=== PATIENT | male | born 1990 | race Caucasian/White ===

== ENCOUNTER 2018-08-25 15:26 | Emergency (ER) | payer OTHER ==
--- NOTE | 2018-08-25 16:00 | ED ---
Syncope/Near Syncope - HPI Summary HPI Summary: 28 year old F presenting to [facility] accompanied by female friend with a chief complaint of syncope two hours ago, since resolved. The patient rates the pain 1 /10 in severity. Symptoms aggravated by nothing. Symptoms alleviated by nothing. Patient reports nausea, dizziness, loss of consciousness. Patient has small laceration on back of head. Patient denies headache, blurry vision, neck pain, palpitations, chest pain. Patient was sitting and watching a video earlier in which there was blood and trauma. Patient felt faint, stood up to go to the hallway outside the classroom in which he was sitting, and passed out, hitting his head on corner of wall. Patient is unsure when his last tetanus shot was. - History Of Current Complaint Chief Complaint: EDSyncope Time Seen by Provider: 08/25/18 15:51 Hx Obtained From: Patient Onset/Duration: Sudden Onset, Resolved Context: Loss Of Consciousness Activity At Onset: At Rest Associated Head Trauma: Yes Aggravating Factor(s): Nothing Alleviating Factor(s): Nothing Associated Signs And Symptoms: Negative - headache, blurry vision, neck pain, palpitations, chest pain, Other - nausea, dizziness, loss of consciousness, brittney laceration on back of head - Allergies/Home Medications Allergies/Adverse Reactions: Allergies Allergy/AdvReac Type Severity Reaction Status Date / Time Sulfa (Sulfonamide Allergy Nausea Verified 08/25/18 15:32 Antibiotics) Home Medications: Home Medications Cetirizine HCl [Zyrtec] 10 mg PO DAILY 08/25/18 [History Confirmed 08/25/18] Docusate Sodium [Colace] 100 mg PO DAILY 08/25/18 [History Confirmed 08/25/18] PMH/Surg Hx/FS Hx/Imm Hx Previously Healthy: No Respiratory History: Denies: Hx Asthma Sensory History: Reports: Hx Contacts or Glasses Opthamlomology History: Reports: Hx Contacts or Glasses - Surgical History Surgery Procedure, Year, and Place: None Infectious Disease History: Yes Infectious Disease History: Denies: Traveled Outside the [place] in Last 30 Days - Family History Known Family History: Positive: Cardiac Disease, Diabetes, Other - [place] - Social History Alcohol Use: None Hx Substance Use: No Substance Use Type: Reports: None Hx Tobacco Use: No Smoking Status (MU): Never Smoked Tobacco Review of Systems Negative: Blurred Vision Negative: Palpitations, Chest Pain Positive: Nausea Musculoskeletal: Negative - neck pain Positive: Other - small laceration on back of head Neurological: Other - LOC, dizziness Positive: Syncope. Negative: Headache All Other Systems Reviewed And Are Negative: Yes Physical Exam - Summary Physical Exam Summary: VITAL SIGNS: Reviewed. GENERAL: Patient is a well-developed and nourished male who is lying comfortable in the stretcher. Patient is not in any acute respiratory distress. HEAD AND FACE: Small abrasion in the left side of the temporal area EYES: PERRLA, EOMI x 2, No injected conjunctiva, no nystagmus. EARS: Hearing grossly intact. Ear canals and tympanic membranes are within normal limits. MOUTH: Oropharynx within normal limits. NECK: Supple, trachea is midline, no adenopathy, no JVD, no carotid bruit, no c- spine tenderness, neck with full ROM. CHEST: Symmetric, no tenderness at palpation LUNGS: Clear to auscultation bilaterally. No wheezing or crackles. CVS: Regular rate and rhythm, S1 and S2 present, no murmurs or gallops appreciated. ABDOMEN: Soft, non-tender. No signs of distention. No rebound no guarding, and no masses palpated. Bowel sounds are normal. EXTREMITIES: FROM in all major joints, no edema, no cyanosis or clubbing. NEURO: Alert and oriented x 3. No acute neurological deficits. Speech is normal and follows commands. SKIN: Dry and warm GCS: 15 Triage Information Reviewed: Yes Vital Signs On Initial Exam: Initial Vitals Temp Pulse Resp BP Pulse Ox 98.5 F 67 18 124/102 97 08/25/18 15:29 08/25/18 15:29 08/25/18 15:29 08/25/18 15:29 08/25/18 15:29 Vital Signs Reviewed: Yes Diagnostics - Vital Signs Vital Signs Temp Pulse Resp BP Pulse Ox 08/25/18 15:29 98.5 F 67 18 124/102 97 - Laboratory Result Diagrams: 08/25/18 16:35 08/25/18 16:35 Lab Statement: Any lab studies that have been ordered have been reviewed, and results considered in the medical decision making process. - Radiology CXR Radiology Interpretation Completed By: Radiologist Summary of Radiographic Findings: NO EVIDENCE FOR ACTIVE CARDIOPULMONARY DISEASE. ED physician has reviewed the report. - CT Brain CT Interpretation Completed By: Radiologist Summary of CT Findings: NO EVIDENCE FOR ACUTE INTRACRANIAL ABNORMALITY. ED physician has reviewed this report. - EKG 1646 Cardiac Rate: NL - 62 BPM EKG Rhythm: Sinus Rhythm Summary of EKG Findings: No ST elevations, normal axis Re-Evaluation - Re-Evaluation First Eval Re-Evaluation Time: 17:43 Comment: discussed with patient the discharge plan and he is agreeable to discharge Course/Dx Assessment/Plan: This patient is a 20-year-old male who presents to the emergency room with chief complaint of having a syncopal episode. Blood test results without any significant abnormality except for WBCs of 11.1. Troponin is 0.01. EKG is a normal sinus rhythm without any ST elevations. Head CT impression: No evidence for acute intracranial abnormality. Chest x-ray impression: No evidence for active cardiopulmonary disease. In the ED course the patient is drinking fluids. I believe that the patients symptoms are secondary to a vasovagal syncope because he was watching blood each is not used to. Therefore since results are within normal limits, the patient is asymptomatic, he will be discharged home with follow-up with PCP. At this point I discussed all the findings and test results with the patient. He was instructed to return to the emergency room immediately if any of the symptoms return or worsens. He understands and agrees. Neurological exam before discharge : Patient is alert and oriented x 3. No acute neurological deficits. Patient vital signs are stable. Patient is to follow up with PCP in the next 2 3 days. Patient understands and agrees. Plan of care was discussed with the patient and patient understands and agrees with the plan of care. All questions were answered at patient satisfaction. There were no further complaints or concerns. - Diagnoses Provider Diagnoses: Vasovagal syncope, Abrasion of scalp Discharge - Sign-Out/Discharge Documenting (check all that apply): Patient Departure - Discharge Patient Received Moderate/Deep Sedation with Procedure: No - Discharge Plan Condition: Stable Disposition: HOME Patient Education Materials: Laceration (ED), Syncope (ED) Referrals: [facility] [Outside] - 2 Days Additional Instructions: Arrange a primary care provider to have follow-up in 2 days. RETURN TO THE EMERGENCY DEPARTMENT FOR NEW OR WORSENING SYMPTOMS. - Billing Disposition and Condition Condition: STABLE Disposition: Home - Attestation Statements Document Initiated by Scribe: Yes Documenting Scribe: Luz Robles Provider For Whom Hermelindoibe is Documenting (Include Credential): Syd Marcum MD Scribe Attestation: I, Luz Robles, scribed for Syd Marcum MD on 08/25/18 at 2137. Scribe Documentation Reviewed: Yes Provider Attestation: The documentation as recorded by the scribe, Luz Robles accurately reflects the service I personally performed and the decisions made by me, Syd Marcum MD Status of Scribe Document: Viewed
[2018-08-25 16:44] LABS: ABS Basophils 0.1 10^3/ul (0-0.2); ABS Eosinophils 0.1 10^3/ul (0-0.6); ABS Lymphocytes 1.4 10^3/ul (1.0-4.8); ABS Monocytes 0.7 10^3/ul (0-0.8); ABS Neutrophils 9.3 10^3/ul (1.5-7.7); Eosinophil % 0.9 %; Hematocrit 45 % (42-52); Hemoglobin 15.5 g/dL (14.0-18.0); Lymphocyte % 11.9 %; Mean Corpuscular HGB Conc 34 g/dL (31-36); Mean Corpuscular Hemoglobin 30 pg (27-31); Mean Corpuscular Volume 88 fL (80-94); Mean Platelet Volume 7.5 fL (7.4-10.4); Nucleated Red Blood Cells % 0.1; Platelet Count 246 10^3/uL (150-450); Red Blood Count 5.16 10^6 /uL (4.18-5.48); Red Cell Distribution Width 13 % (10.5-15); White Blood Count 11.5 10^3/uL (3.5-10.8)
[2018-08-25 16:51] LABS: INR 1.08 (0.82-1.09)
[2018-08-25 17:05] LABS: ALT 12 U/L (7-52); AST 13 U/L (13-39); Albumin/Globulin Ratio 1.6 (1-3); Alkaline Phosphatase 57 U/L (34-104); Anion Gap 7 mmol/L (2-11); BUN/Creatinine Ratio 13.5 (8-20); Blood Urea Nitrogen 14 mg/dL (6-24); CO2 Carbon Dioxide 28 mmol/L (22-32); Calcium 10.1 mg/dL (8.6-10.3); Chloride 103 mmol/L (101-111); Creatine Kinase 102 U/L (10-223); EGFR African American 102.9 (>60); Globulin 3.1 g/dL (2-4); Glucose 96 mg/dL (70-100); Sodium 138 mmol/L (135-145); Total Protein 8.1 g/dL (6.4-8.9)
[2018-08-25 17:06] LABS: Troponin I 0.01 ng/mL (<0.04)
[2018-08-25 17:10] LABS: Alcohol < 10 mg/dL (<10)
[2018-08-25 17:26] LABS: TSH (Thyroid Stimulating Horm) 0.79 mcIU/mL (0.34-5.60)
[2018-08-25 17:43] VITALS: BP 117/73
== END 2018-08-25 17:43 | disposition home or self-care (01) ==
LOC: ED 15:26
DX: R55 Syncope and collapse (principal); S01.01XA Laceration without foreign body of scalp, initial encounter; Z88.2 Allergy status to sulfonamides; W19.XXXA Unspecified fall, initial encounter; Y92.9 Unspecified place or not applicable; R11.0 Nausea
CPT/HCPCS: 36415; 70450; 71046; 80053; 80320; 82550; 83605; 83735; 83880; 84443; 84484; 85025; 85610; 86703; 93005; 99282; G0480